=== PATIENT | female | born 1985 | race Caucasian/White ===

== ENCOUNTER 2018-10-15 08:11 | Emergency (ER) | payer BC ==
[~2018-10-15] VITALS: Ht 165.1 cm; Wt 72.6 kg
[2018-10-15 08:18] VITALS: Ht 165.1 cm; Wt 72.6 kg
[2018-10-15 09:27] VITALS: BP 145/71
== END 2018-10-15 09:27 | disposition home or self-care (01) ==
LOC: ED 08:11
DX: J04.0 Acute laryngitis (principal); M79.7 Fibromyalgia
CPT/HCPCS: J1885